=== PATIENT | male | born 1945 | race Caucasian/White ===

== ENCOUNTER 2018-09-08 10:23 | Day surgery (SDC) | payer OTHER ==
[~2018-09-08] VITALS: Ht 180.3 cm; Wt 140.7 kg
[~2018-09-08 10:23] MED LIST: ACET120S PR; ALBU90OI6 INH; CETI10 PO; FLUSAL2505 INH; Ipratr-Albuterol3 ML INH; LORA1 PO; MECL25 PO; PHENY.5NI; ZYRTEC10 M2 PO
[2018-09-08] MEDS ORDERED: ASPI81CH (11:12)
[2018-09-08] MEDS ORDERED: PRAV20 (11:13)
[2018-09-08] MEDS ORDERED: HYDCHL12.5 (11:14)
--- NOTE | 2018-09-08 11:55 | NUR ---
09/08/18 1155 Avis Andarde USED.
== END 2018-09-08 12:30 | disposition home or self-care (01) ==
LOC: ORSCSDS 10:23
PROVIDERS: Ophthalmology
PROC: 08RK3JZ Replacement of Left Lens with Synthetic Substitute, Percutaneous Approach (ICD-10-PCS; principal; 2018-09-08 12:00)
DX: H25.12 Age-related nuclear cataract, left eye (principal); J44.9 Chronic obstructive pulmonary disease, unspecified; G47.33 Obstructive sleep apnea (adult) (pediatric); I10 Essential (primary) hypertension; Z79.82 Long term (current) use of aspirin; Z79.899 Other long term (current) drug therapy; F17.210 Nicotine dependence, cigarettes, uncomplicated
CPT/HCPCS: 82947; J2001; J2250; J3010; V2632

== ENCOUNTER 2019-05-25 12:45 | Day surgery (SDC) | payer OTHER ==
[~2019-05-25] VITALS: Ht 182.9 cm; Wt 133.2 kg
[~2019-05-25 12:45] MED LIST changes: +ASPI81CH; +Duoneb 2.5-0.5 M3 ML; +FLUT1DIS5 INH; +HYDCHL12.5; +HYDCHL12.5 PO; +PRAV20; +PRAV20 PO; +Ventolin/Prove6.7 GM INH
--- NOTE | 2019-05-25 15:15 | NUR ---
05/25/19 1515 Myranda Rod WHEELCHAIR TO THE CAR FOR SAFETY. THE PATIENT WAS ABLE TO TRANSFER FROM BED TO CHAIR WITHOUT MINIMAL HELP. PATIENT DISCHARGED IN STABLE CONDITION
== END 2019-05-25 15:00 | disposition home or self-care (01) ==
LOC: ORSCSDS 12:45
PROVIDERS: Student in an Organized Health Care Education/Training Program
PROC: 0DBN8ZX Excision of Sigmoid Colon, Via Natural or Artificial Opening Endoscopic, Diagnostic (ICD-10-PCS; principal; 2019-05-25 14:00)
PROC: 0DBL8ZX Excision of Transverse Colon, Via Natural or Artificial Opening Endoscopic, Diagnostic (ICD-10-PCS; principal; 2019-05-25 14:00)
PROC: 0DBM8ZX Excision of Descending Colon, Via Natural or Artificial Opening Endoscopic, Diagnostic (ICD-10-PCS; principal; 2019-05-25 14:00)
DX: K92.1 Melena (principal); D12.5 Benign neoplasm of sigmoid colon; D12.3 Benign neoplasm of transverse colon; K63.5 Polyp of colon; K57.30 Diverticulosis of large intestine without perforation or abscess without bleeding; R15.0 Incomplete defecation; E78.5 Hyperlipidemia, unspecified; J44.9 Chronic obstructive pulmonary disease, unspecified; F17.210 Nicotine dependence, cigarettes, uncomplicated; G47.33 Obstructive sleep apnea (adult) (pediatric); E66.01 Morbid (severe) obesity due to excess calories; Z68.39 Body mass index [BMI] 39.0-39.9, adult; Z79.899 Other long term (current) drug therapy
CPT/HCPCS: 88305; J2250; J2704; J7120

== ENCOUNTER → 2021-10-08 | Outpatient (CLI) | payer OTHER | END | disposition home or self-care (01) | LOC: LAB SHORT 09:12 → LAB 09:12 | DX: L03.011 Cellulitis of right finger (principal) | CPT/HCPCS: 87070; 87077; 87186; 87205 ==

== ENCOUNTER → 2021-10-12 | Outpatient (CLI) | payer OTHER | END | disposition home or self-care (01) | LOC: LAB 12:09 → LAB SHORT 12:09 | DX: L03.011 Cellulitis of right finger (principal) | CPT/HCPCS: 87070; 87075; 87077; 87186; 87205 ==